=== PATIENT | male | born 1950 ===

== ENCOUNTER 2020-12-19 09:45 | Inpatient (IN) | payer OTHER ==
[~2020-12-19] VITALS: Ht 167.6 cm; Wt 78.5 kg
[2020-12-19] MEDS ORDERED: ATORVASTATIN CA80 MG PO (12:02)
[2020-12-19] MEDS ORDERED: CARVEDILOL6.25 M1 PO (12:02)
[2020-12-19] MEDS ORDERED: LASIX20 MG PO (12:03)
[2020-12-19] MEDS ORDERED: COZAAR50 MG PO (12:03)
[2020-12-19] MEDS ORDERED: ATORVAST PO (12:05)
[2020-12-19] MEDS ORDERED: PLAVIX75 MG PO (12:05)
[2020-12-25] MEDS ORDERED: ISOSORBIDE MONO30 M2 (16:14)
[2020-12-25] MEDS ORDERED: FAMOTIDINE40 MG (16:14)
[2020-12-25] MEDS ORDERED: PANTOPRAZOLE SO40 MG (16:14)
[2020-12-27] MEDS ORDERED: HYOSCYAMINE0.125 M1 SL (11:49)
[2020-12-27] MEDS ORDERED: OXYC1TAB9 PO (11:50)
[2020-12-27] MEDS ORDERED: INTESTINEX680 M1 PO (11:52)
== END 2020-12-27 14:29 | disposition home or self-care (01) | DRG 331 ==
LOC: O/R 12-25 09:41 → SURH 12-25 09:41
PROVIDERS: ADMIT Surgery; ATTEND Surgery
PROC: 0DTN4ZZ Resection of Sigmoid Colon, Percutaneous Endoscopic Approach (ICD-10-PCS; 2020-12-25)
PROC: 07BC4ZX Excision of Pelvis Lymphatic, Percutaneous Endoscopic Approach, Diagnostic (ICD-10-PCS; 2020-12-25)
PROC: 3E0F7SF Introduction of Other Gas into Respiratory Tract, Via Natural or Artificial Opening (ICD-10-PCS; 2020-12-25)
PROC: 0DTP4ZZ Resection of Rectum, Percutaneous Endoscopic Approach (ICD-10-PCS; principal; 2020-12-25 12:45)
PROC: 4A12X4Z Monitoring of Cardiac Electrical Activity, External Approach (ICD-10-PCS; 2020-12-26)
DX: C18.7 Malignant neoplasm of sigmoid colon (principal); R59.0 Localized enlarged lymph nodes